=== PATIENT | female | born 2000 | race American Indian/Alaskan Native ===

== ENCOUNTER 2020-05-06 13:47 | Emergency (ER) | payer BC ==
[~2020-05-06] VITALS: Ht 167.6 cm; Wt 71.7 kg
[2020-05-06 14:18] VITALS: BP_SYST 128
--- NOTE | 2020-05-06 14:20 | NUR ---
Patient to ER bed 03 to gown for evaluation. Side rails up.
--- NOTE | 2020-05-06 14:26 | NUR ---
ER Dr. Molina at bedside examining patient.
--- NOTE | 2020-05-06 14:43 | NUR ---
PT IN [facility]. A/O. NO SOB. PT HAS SMALL RAISED REDDENED BUMP ON LEFT ARM
[2020-05-06 15:11] VITALS: BP_SYST 128
--- NOTE | 2020-05-06 15:12 | NUR ---
Note undone in EDM - 05/06/20 at 1553 by AGGIE Patient given written and verbal discharge instructions and verbalizes understanding. ER discussed with patient the results and treatment provided. Patient in stable condition. ID arm band removed. Rx of prednisone and Keflex given. Patient educated on pain management and to follow up with PMD. Pain Scale 0/10. Opportunity for questions provided and answered. Medication side effect fact sheet provided.
--- NOTE | 2020-05-06 15:13 | NUR ---
Patient given written and verbal discharge instructions and verbalizes understanding. ER MD discussed with patient the results and treatment provided. Patient in stable condition. ID arm band removed. Rx of prednisone and Keflex given. Patient educated on pain management and to follow up with PMD. Pain Scale 0/10. Opportunity for questions provided and answered. Medication side effect fact sheet provided.
== END 2020-05-06 15:13 | disposition home or self-care (01) ==
LOC: SED 13:47
DX: R21 Rash and other nonspecific skin eruption (principal)
CPT/HCPCS: 99283

== ENCOUNTER 2021-12-22 08:11 | Emergency (ER) | payer BC ==
[~2021-12-22] VITALS: Ht 170.2 cm; Wt 73.5 kg
[2021-12-22 08:14] VITALS: BP_SYST 151
[2021-12-22] MEDS ORDERED: ACETAMINOPHEN 500 MG TABLET PO ONE (08:30)
[2021-12-22] MEDS ORDERED: KETOROLAC TROMETHAMINE 30 MG VIAL IM ONE (08:30)
[2021-12-22] MEDS ORDERED: ACET-2634 PO (08:58)
[2021-12-22] MEDS ORDERED: MORPHINE 4 MG INJ. 4 MG/ML VIAL IM ONE (09:30)
[2021-12-22 10:04] VITALS: BP_SYST 151
== END 2021-12-22 10:06 | disposition home or self-care (01) ==
LOC: SED 08:11
DX: S82.831A Other fracture of upper and lower end of right fibula, initial encounter for closed fracture (principal); Z79.899 Other long term (current) drug therapy; W10.8XXA Fall (on) (from) other stairs and steps, initial encounter; Y93.89 Activity, other specified; Y92.89 Other specified places as the place of occurrence of the external cause; Y99.8 Other external cause status
CPT/HCPCS: 29515; 73610; 81025; 96372; 99284; J1885; J2270